=== PATIENT | male | born 1960 | race Caucasian/White ===

== ENCOUNTER → 2017-09-20 | Outpatient (CLI) | payer BC | LOC: M RAD 17:46 | DX: M25.571 Pain in right ankle and joints of right foot (principal) ==

== ENCOUNTER → 2018-01-12 | Outpatient (REF) | payer BC ==
[2018-01-12 18:19] LABS: BASO % 0.5 % (0.0-1.0); EOS # 0.3 10^3/uL (0.0-0.50); EOS % 3.4 % (0.0-3.0); HEMATOCRIT 40.6 % (42.0-52.0); HEMOGLOBIN 14.2 g/dl (13.5-17.5); IMMATURE GRANULOCYTE % 0.4 % (0-3.0); LYMPH # 2.1 10^3/uL (1.5-4.5); LYMPH % 24.8 % (24.0-44.0); MEAN CORPUSCULAR HEMOGLOBIN 35.1 pg (27.0-33.0); MEAN CORPUSCULAR VOLUME 100.5 fl (80.0-96.0); MONO # 0.7 10^3/uL (0.0-0.8); MONO % 8.5 % (0.0-5.0); NEUTROPHILS # 5.2 10^3/uL (1.8-7.7); NEUTROPHILS % 62.4 % (36.0-66.0); PLATELET COUNT, AUTOMATED 278 10^3/uL (150-450); RED BLOOD COUNT 4.04 10^6/uL (4.30-6.10); RED CELL DISTRIBUTION WIDTH 12.1 % (11.5-14.5); WHITE BLOOD COUNT 8.3 10^3/uL (4.0-10.0)
[2018-01-12 18:42] LABS: ALBUMIN 3.7 GM/DL (3.2-5.2); ALBUMIN/GLOBULIN RATIO 1.09 (1.00-1.93); ALKALINE PHOSPHATASE 130 U/L (45-117); ALT/SGPT 27 U/L (12-78); ANION GAP 10 MEQ/L (8-16); AST/SGOT 18 U/L (7-37); BILIRUBIN,TOTAL 0.8 MG/DL (0.2-1.0); BLOOD UREA NITROGEN 19 MG/DL (7-18); CALCIUM LEVEL 9.2 MG/DL (8.5-10.1); CARBON DIOXIDE LEVEL 23 MEQ/L (21-32); CHLORIDE LEVEL 109 MEQ/L (98-107); CREATININE FOR GFR 1.48 MG/DL (0.70-1.30); GLOMERULAR FILTRATION RATE 52.5 (>56); GLUCOSE, FASTING 92 MG/DL (70-100); POTASSIUM SERUM 4.2 MEQ/L (3.5-5.1); SODIUM LEVEL 142 MEQ/L (136-145); TOTAL PROTEIN 7.1 GM/DL (6.4-8.2)
== END ==
LOC: M LAB REF 18:13
DX: M79.673 Pain in unspecified foot (principal)

== ENCOUNTER → 2018-01-18 | Outpatient (REF) | payer BC ==
[2018-01-18 13:36] LABS: APPEARANCE, URINE CLEAR (CLEAR); BACTERIA, URINE AUTO NEGATIVE (NEGATIVE); BILIRUBIN, URINE AUTO NEGATIVE (NEGATIVE); BLOOD, URINE BLOOD NEGATIVE (NEGATIVE); COLOR, URINE YELLOW (YELLOW); GLUCOSE, URINE (UA) AUTO NEGATIVE (NEGATIVE); KETONE, URINE AUTO NEGATIVE (NEGATIVE); LEUKOCYTE ESTERASE, URINE AUTO NEGATIVE (NEGATIVE); MUCUS, URINE SMALL (NEGATIVE); NITRITE, URINE AUTO NEGATIVE (NEGATIVE); PROTEIN, URINE AUTO NEGATIVE (NEGATIVE); RBC, URINE AUTO 1 /HPF (0-3); SPECIFIC GRAVITY URINE AUTO 1.017 (1.002-1.035); SQUAMOUS EPITHELIAL CELL UR AU 0 /HPF (0-6); UROBILINOGEN, URINE AUTO 0.2 mg/dL (0.0-2.0); WBC, URINE AUTO 1 /HPF (0-3)
[2018-01-18 13:49] LABS: URIC ACID 7.3 MG/DL (3.5-7.2)
[2018-01-18 13:51] LABS: VITAMIN B12 LEVEL 403 PG/ML (247-911)
== END ==
LOC: M LAB REF 13:00
DX: N18.3 Chronic kidney disease, stage 3 (moderate) (principal); R73.09 Other abnormal glucose; R63.4 Abnormal weight loss; K21.9 Gastro-esophageal reflux disease without esophagitis
CPT/HCPCS: 84550

== ENCOUNTER → 2018-01-18 | Outpatient (REF) | payer BC ==
[2018-01-19 14:24] LABS: PHOSPHORUS LEVEL 3.1 MG/DL (2.5-4.9)
[2018-01-19 14:24] LABS: RHEUMATOID FACTOR QUANT < 10.0 IU/ML (<15.0)
[2018-01-20 16:20] LABS: ANTINUCLEAR ANTIBODIES DIRECT Negative (Negative)
== END ==
LOC: M LAB REF 13:28
DX: N18.3 Chronic kidney disease, stage 3 (moderate) (principal); M25.511 Pain in right shoulder; M79.671 Pain in right foot; R63.4 Abnormal weight loss

== ENCOUNTER → 2018-02-06 | Outpatient (REF) | payer BC ==
[2018-02-06 18:41] LABS: C REACTIVE PROTEIN QUANTITATIV 0.33 MG/DL (0.00-0.30)
[2018-02-06 18:41] LABS: URIC ACID 7.9 MG/DL (3.5-7.2)
== END ==
LOC: M LAB REF 17:22
DX: M79.671 Pain in right foot (principal); M25.511 Pain in right shoulder
CPT/HCPCS: 84550

== ENCOUNTER → 2018-03-15 | Outpatient (CLI) | payer BC | LOC: M RAD 12:16 | DX: I15.0 Renovascular hypertension (principal); N18.3 Chronic kidney disease, stage 3 (moderate) | CPT/HCPCS: 78707 ==

== ENCOUNTER → 2018-04-18 | Outpatient (REF) | payer BC ==
[2018-04-18 13:44] LABS: URIC ACID 8.8 MG/DL (3.5-7.2)
== END ==
LOC: M LAB REF 12:23
DX: M79.671 Pain in right foot (principal); M25.511 Pain in right shoulder
CPT/HCPCS: 84550

== ENCOUNTER → 2018-06-06 | Outpatient (REF) | payer BC ==
[2018-06-06 13:02] LABS: URIC ACID 8.2 MG/DL (3.5-7.2)
== END ==
LOC: M LAB REF 12:18
DX: M25.511 Pain in right shoulder (principal); M79.671 Pain in right foot
CPT/HCPCS: 84550

== ENCOUNTER → 2018-06-08 | Outpatient (CLI) | payer BC ==
[~2018-06-08] MED LIST: ISOVUE-370 76% 100ML VIAL (Q9967) As Ordered
== END ==
LOC: M RAD 16:44
DX: I70.1 Atherosclerosis of renal artery (principal)
CPT/HCPCS: Q9967

== ENCOUNTER → 2018-09-02 | Outpatient (CLI) | payer BC ==
--- NOTE | 2018-09-02 11:05 | REP ---
The lumbar spine five views: Comparison is 07/03/2016. There are pedicle screws and stabilization rods spanning the L4 - L5-S1 levels. This is unchanged. There is no spondylolisthesis. There is opacity within the L4-5 disc space, possibly an intervertebral disc spacer. There is disc space narrowing throughout the lumbar spine, most advanced at L4-5 and L5 S1 compatible with multilevel degenerative disc disease, not significantly changed. The sacroiliac articulations are unremarkable. Impression: Postsurgical changes as described. Degenerative disc disease as described. No significant interval change. Electronically Signed by Tyler Martinez MD 09/02/2018 10:56 A
== END ==
LOC: M RAD 10:15
PROVIDERS: ATTEND Internal Medicine
DX: M54.5 Low back pain (principal)

== ENCOUNTER → 2018-10-04 | Outpatient (REF) | payer BC | LOC: M LAB REF 12:08 | PROVIDERS: ATTEND Internal Medicine | DX: M79.671 Pain in right foot (principal); M25.511 Pain in right shoulder ==

== ENCOUNTER → 2018-11-07 | Outpatient (REF) ==
--- NOTE | 2018-11-08 01:30 | REP ---
Clinical: Pain and disability. Technique: AP, lateral, coned-down views of the lumbosacral spine. Comparison: 09/02/2018. Findings: The patient is again noted to be status post posterior fixation at L4-S1. Alignment is stable and relatively maintained. Multilevel degenerative changes include endplate sclerosis, osteophyte formation, hypertrophic facet changes are again noted and essentially stable. No acute fracture / compression injury or subluxation. Impression: Stable appearance to L4-S1 fixation. Multilevel degenerative changes again noted and relatively stable. Electronically Signed by Joe Gibson MD 11/08/2018 01:21 A
== END ==
LOC: M SMT 11:08
PROVIDERS: ATTEND Internal Medicine
DX: M51.9 Unspecified thoracic, thoracolumbar and lumbosacral intervertebral disc disorder (principal); Z98.1 Arthrodesis status

== ENCOUNTER → 2019-01-29 | Outpatient (REF) | payer BC | LOC: M LAB REF 12:40 | PROVIDERS: ATTEND Internal Medicine | DX: M79.671 Pain in right foot (principal) ==

== ENCOUNTER → 2019-05-21 | Outpatient (REF) | payer BC | LOC: M LAB REF 12:23 | PROVIDERS: ATTEND Internal Medicine | DX: M10.9 Gout, unspecified (principal) ==

== ENCOUNTER → 2019-09-11 | Outpatient (REF) | payer MEDICARE | LOC: M LAB REF 12:27 | PROVIDERS: ATTEND Internal Medicine | DX: M10.9 Gout, unspecified (principal); N18.3 Chronic kidney disease, stage 3 (moderate) ==

== ENCOUNTER → 2020-03-18 | Outpatient (REF) | payer MEDICARE | LOC: M LAB REF 19:37 | PROVIDERS: ATTEND Internal Medicine | DX: M10.9 Gout, unspecified (principal) ==

== ENCOUNTER → 2020-07-02 | Outpatient (CLI) | payer MEDICARE ==
--- NOTE | 2020-07-02 09:45 | REP ---
INDICATION: SPRAIN OF LEFT ANKLE AND FOOT COMPARISON: None. TECHNIQUE: AP, lateral, bilateral oblique views left foot. FINDINGS: Generalized age-related changes are appreciated. No obvious acute fracture or dislocation. No subcutaneous emphysema or foreign body. IMPRESSION: Generalized age-related changes. No acute fracture or dislocation. <Electronically signed by Joe Gibson > 07/02/20 0934
--- NOTE | 2020-07-02 09:46 | REP ---
INDICATION: SPRAIN OF LEFT ANKLE AND FOOT COMPARISON: None. TECHNIQUE: AP, lateral, bilateral oblique views. FINDINGS: Generalized age-related changes are appreciated as well as evidence for old healed fractures primarily involving the lateral malleolus. No obvious acute fracture or dislocation identified. Ankle mortise appears intact. IMPRESSION: Generalized age-related degenerative changes and posttraumatic changes related to old injury. No obvious acute fracture or dislocation. <Electronically signed by Joe Gibson > 07/02/20 0919
== END ==
LOC: M WUC 08:47
PROVIDERS: ATTEND Physician Assistant
DX: S93.402A Sprain of unspecified ligament of left ankle, initial encounter (principal); S93.602A Unspecified sprain of left foot, initial encounter; X58.XXXA Exposure to other specified factors, initial encounter; Y92.89 Other specified places as the place of occurrence of the external cause; Y93.89 Activity, other specified; Y99.8 Other external cause status; M19.072 Primary osteoarthritis, left ankle and foot

== ENCOUNTER → 2020-09-16 | Outpatient (REF) | payer MEDICARE | LOC: M LAB REF 12:19 | PROVIDERS: ATTEND Internal Medicine | DX: M10.9 Gout, unspecified (principal) ==

== ENCOUNTER → 2020-10-29 | Outpatient (REF) | payer MEDICARE | LOC: M LAB REF 16:25 | PROVIDERS: ATTEND Internal Medicine | DX: M10.9 Gout, unspecified (principal) ==

== ENCOUNTER 2021-01-10 19:52 | Emergency (ER) | payer MEDICARE ==
[~2021-01-10] VITALS: Ht 190.5 cm; Wt 113.6 kg
[2021-01-10] MEDS ORDERED: ALLO100T PO (20:07)
[2021-01-10] MEDS ORDERED: FAMO1TAB11 PO (20:07)
[2021-01-10] MEDS ORDERED: AMLO2.5T3 PO (20:07)
[2021-01-10] MEDS ORDERED: ROSU20TA5 PO (20:07)
[2021-01-10] MEDS ORDERED: ASPIRIN 81 MG CHEW TABLET PO ONE (20:25)
[2021-01-10 20:30] LABS: BASO # 0.1 10^3/uL (0.0-0.2); BASO % 0.6 % (0.0-1.0); EOS # 0.3 10^3/uL (0.0-0.5); HEMATOCRIT 46.2 % (42.0-52.0); HEMOGLOBIN 15.9 g/dl (13.5-17.5); LYMPH # 3.5 10^3/uL (1.5-5.0); LYMPH % 32.7 % (24.0-44.0); MEAN CORPUSCULAR HEMOGLOBIN 34.2 pg (27.0-33.0); MEAN CORPUSCULAR HGB CONC 34.4 g/dl (32.0-36.5); MEAN CORPUSCULAR VOLUME 99.4 fl (80.0-96.0); MONO # 0.9 10^3/uL (0.0-0.8); NEUTROPHILS % 55.3 % (36.0-66.0); PLATELET COUNT, AUTOMATED 285 10^3/uL (150-450); RED BLOOD COUNT 4.65 10^6/uL (4.30-6.10); WHITE BLOOD COUNT 10.8 10^3/uL (4.0-10.0)
--- NOTE | 2021-01-10 20:33 | REP ---
INDICATION: CHEST PAIN COMPARISON: None. TECHNIQUE: Portable AP view of the chest FINDINGS: The mediastinum and cardiac silhouette are within normal limits for portable technique. The lung lozano are clear without acute consolidation, effusion, or pneumothorax. Skeletal structures are intact. IMPRESSION: No acute cardiopulmonary process appreciated. <Electronically signed by Joe Gibson > 01/10/212028
[2021-01-10 20:37] VITALS: BP 152/81
[2021-01-10] MEDS: NITROGLYCERIN 0.4 MG SUBL TABLET SL PRN (20:37)
[2021-01-10 20:41] LABS: INR 0.97; PROTHROMBIN TIME 13.1 SECONDS (12.5-14.3)
[2021-01-10 20:42] LABS: PARTIAL THROMBOPLASTIN TIME 23.2 SECONDS (24.2-38.5)
[2021-01-10 21:23] LABS: ALT/SGPT 41 U/L (12-78); BILIRUBIN,DIRECT 0.2 MG/DL (0.0-0.2); BILIRUBIN,TOTAL 0.6 MG/DL (0.2-1.0); BLOOD UREA NITROGEN 19 MG/DL (7-18); CARBON DIOXIDE LEVEL 20 MEQ/L (21-32); CHLORIDE LEVEL 116 MEQ/L (98-107); CK-MB VALUE MASS 2.8 NG/ML (<3.6); CPK CREATINE PHOSPHOKINASE 210 U/L (39-308); CREATININE FOR GFR 1.33 MG/DL (0.70-1.30); FREE T4 0.85 NG/DL (0.76-1.46); GLOMERULAR FILTRATION RATE 58.8 (>56); GLUCOSE, FASTING 98 MG/DL (70-100); LIPASE 108 U/L (73-393); MB/CK RELATIVE INDEX 1.33 (< OR =4); NT-PRO BNP 11 PG/ML (<125); POTASSIUM SERUM 3.4 MEQ/L (3.5-5.1); SODIUM LEVEL 146 MEQ/L (136-145); TOTAL PROTEIN 5.6 GM/DL (6.4-8.2); TROPONIN I < 0.02 NG/ML (< 0.10)
[2021-01-10] MEDS ORDERED: POTASSIUM CHLORIDE 10 MEQ SR TABLET PO ONE (21:45)
[2021-01-10] MEDS ORDERED: NS 1,000 ML IV SCH (21:45)
[2021-01-10] MEDS ORDERED: ISOVUE-370 76% 100ML VIAL As Ordered ONE (21:45)
--- NOTE | 2021-01-10 22:06 | REPVR ---
PROCEDURE INFORMATION: Exam: CTA Chest With Contrast Exam date and time: 01/10/2021 9:49 PM Age: 60 years old Clinical indication: Pain; Shortness of breath; Chest pressure; Additional info: Chest pain SOB TECHNIQUE: Imaging protocol: Computed tomographic angiography of the chest with contrast. 3D rendering (Not supervised by radiologist): MIP and/or 3D reconstructed images were created by the technologist. Radiation optimization: All CT scans at this facility use at least one of these dose optimization techniques: automated exposure control; mA and/or kV adjustment per patient size (includes targeted exams where dose is matched to clinical indication); or iterative reconstruction. Contrast material: ISOVUE 370; Contrast volume: 100 ml; Contrast route: INTRAVENOUS (IV); COMPARISON: CR PORTABLE CHEST X-RAY 01/10/2021 8:08 PM FINDINGS: Pulmonary arteries: There are no pulmonary emboli. Aorta: There is mild atherosclerosis in the thoracic aorta. There is no aortic dissection or aneurysm. Lungs: Bilateral mild apical pleuroparenchymal scarring. Lungs otherwise clear. Pleural spaces: Unremarkable. No pneumothorax. No pleural effusion. Heart: Unremarkable. No cardiomegaly. No pericardial effusion. Lymph nodes: Unremarkable. No enlarged lymph nodes. Bones/joints: Status post right shoulder arthroplasty. The spine demonstrates mild degenerative changes. Soft tissues: Unremarkable. IMPRESSION: 1. There is no aortic dissection or aneurysm. 2. There are no pulmonary emboli. 3. No acute pulmonary parenchymal infiltrates. Electronically signed by: Oz Ureña On 01/10/2021 22:06:07 PM
[2021-01-11 02:59] LABS: CK-MB VALUE MASS 3.2 NG/ML (<3.6); CPK CREATINE PHOSPHOKINASE 202 U/L (39-308); MB/CK RELATIVE INDEX 1.58 (< OR =4); TROPONIN I < 0.02 NG/ML (< 0.10)
[2021-01-11 03:15] VITALS: BP 135/94
[2021-01-11] MEDS: NITROGLYCERIN 0.4 MG SUBL TABLET SL PRN (04:53)
--- NOTE | 2021-01-11 18:11 | ECGEPIP ---
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
--- NOTE | 2021-01-11 18:12 | ECGEPIP ---
[facility] - ED Test Date: 2021-01-11 Pat Name: ZENAIDA OZUNA Department: Room: - Gender: Male Bench Hand Machine: ED : 1960 Requested By: NEO Rhodes Order Number: [id number] Reading MD: Shelby Dutta Measurements Intervals [place] Rate: 64 P: -1 UT: 182 QRS: -7 QRSD: 84 T: 26 QT: 396 QTc: 408 Interpretive Statements Normal sinus rhythm Minimal voltage criteria for LVH, may be normal variant ( R in aVL ) leftward axis Nonspecific ST T wave changes cw 01/10/[address] T wave changes Electronically Signed on 01-11-2021 18:12:20 EDT by Shelby Dutta
== END 2021-01-11 05:59 | disposition home or self-care (01) ==
LOC: M ED 19:52
DX: R07.9 Chest pain, unspecified (principal); R06.02 Shortness of breath; I10 Essential (primary) hypertension; E78.5 Hyperlipidemia, unspecified; Z87.891 Personal history of nicotine dependence; Z79.899 Other long term (current) drug therapy
CPT/HCPCS: 71045; 71275; 80048; 80076; 82550; 82553; 83690; 83880; 84439; 84443; 84484; 85025; 85610; 85730; 93005; 93041; 94760; 96360; 96361; 99285; Q9967

== ENCOUNTER → 2021-03-24 | Outpatient (REF) | payer MEDICARE ==
[~2021-03-24] MED LIST changes: +ALLO100T PO; +AMLO2.5T3 PO; +FAMO1TAB11 PO; -ISOVUE-370 76% 100ML VIAL (Q9967) As Ordered; +ROSU20TA5 PO
== END ==
LOC: M LAB REF 11:03
PROVIDERS: ATTEND Internal Medicine
DX: M10.9 Gout, unspecified (principal)

== ENCOUNTER → 2022-04-20 | Outpatient (REF) | payer MEDICARE | LOC: M LAB REF 16:08 | PROVIDERS: ATTEND Physician Assistant Medical | DX: M54.50 Low back pain, unspecified (principal); R30.0 Dysuria ==

== ENCOUNTER → 2022-05-14 | Outpatient (CLI) | payer MEDICARE | LOC: M RAD 13:25 | PROVIDERS: ATTEND Physician Assistant Medical | DX: N50.819 Testicular pain, unspecified (principal) ==

== ENCOUNTER → 2022-05-25 | Outpatient (REF) | payer MEDICARE | LOC: M LAB REF 16:40 | PROVIDERS: ATTEND Internal Medicine | DX: R74.8 Abnormal levels of other serum enzymes (principal) ==

== ENCOUNTER → 2022-11-18 | Outpatient (REF) | payer MEDICARE | LOC: M LAB REF 12:19 | PROVIDERS: ATTEND Internal Medicine | DX: M10.9 Gout, unspecified (principal) ==

== ENCOUNTER 2023-03-02 18:21 | Emergency (ER) | payer MEDICARE ==
[~2023-03-02] VITALS: Ht 190.5 cm; Wt 116.3 kg
[~2023-03-02 18:21] MED LIST changes: -ROSU20TA5 PO; +ROSU20TA61 PO
[2023-03-02 19:14] LABS: BASO # 0.1 10^3/uL (0.0-0.2); BASO % 0.7 % (0.0-1.0); EOS # 0.3 10^3/uL (0.0-0.5); EOS % 2.7 % (0.0-3.0); HEMATOCRIT 45.4 % (42.0-52.0); HEMOGLOBIN 15.8 g/dl (13.5-17.5); LYMPH # 2.9 10^3/uL (1.5-5.0); LYMPH % 27.7 % (24.0-44.0); MEAN CORPUSCULAR HEMOGLOBIN 34.9 pg (27.0-33.0); MEAN CORPUSCULAR HGB CONC 34.8 g/dl (32.0-36.5); MEAN CORPUSCULAR VOLUME 100.2 fl (80.0-96.0); MONO # 0.9 10^3/uL (0.0-0.8); MONO % 8.3 % (2.0-8.0); NEUTROPHILS # 6.3 10^3/uL (1.5-8.5); NEUTROPHILS % 60.3 % (36.0-66.0); PLATELET COUNT, AUTOMATED 252 10^3/uL (150-450); RED BLOOD COUNT 4.53 10^6/uL (4.30-6.10); WHITE BLOOD COUNT 10.4 10^3/uL (4.0-10.0)
[2023-03-02 19:36] LABS: CALCIUM LEVEL 9.6 MG/DL (8.3-10.6); CK-MB VALUE MASS 1.6 NG/ML (<3.6); CREATININE FOR GFR 1.91 MG/DL (0.70-1.30); GLOMERULAR FILTRATION RATE 38.3 (>49); MB/CK RELATIVE INDEX 0.81 (< OR =4); POTASSIUM SERUM 4.6 MMOL/L (3.5-5.1)
[2023-03-02 22:05] LABS: CK-MB VALUE MASS 2.6 NG/ML (<3.6)
[2023-03-02 22:08] LABS: MB/CK RELATIVE INDEX 3.61 (< OR =4)
[2023-03-02 22:49] VITALS: TEMP 97.2
[2023-03-03] MEDS ORDERED: NS 1,000 ML IV ONE (02:00)
[2023-03-03] MEDS ORDERED: ACETAMINOPHEN *IV* 1,000 MG in IV 1 EA IV ONE (02:00)
[2023-03-03 02:15] VITALS: BP 148/98; O2SAT 96
[2023-03-03 02:31] LABS: ALBUMIN 3.9 G/DL (3.2-5.2); BILIRUBIN,DIRECT 0.4 MG/DL (<0.4); BILIRUBIN,TOTAL 1.4 MG/DL (0.3-1.2); CK-MB VALUE MASS 1.4 NG/ML (<3.6); MAGNESIUM LEVEL 1.8 MG/DL (1.8-2.4); TOTAL PROTEIN 6.9 G/DL (5.7-8.2)
[2023-03-03 02:34] LABS: MB/CK RELATIVE INDEX 0.76 (< OR =4)
== END 2023-03-03 03:12 | disposition home or self-care (01) ==
LOC: M ED 18:21
DX: R07.9 Chest pain, unspecified (principal); N18.9 Chronic kidney disease, unspecified; I10 Essential (primary) hypertension; E78.5 Hyperlipidemia, unspecified; Z87.891 Personal history of nicotine dependence; Z88.8 Allergy status to other drugs, medicaments and biological substances; Z79.899 Other long term (current) drug therapy
CPT/HCPCS: 36415; 71046; 80048; 80076; 82550; 82553; 83690; 83735; 84484; 85025; 87486; 87581; 87633; 87798; 93005; 93041; 93971; 94760; 99284; J0131

== ENCOUNTER → 2023-07-27 | Outpatient (CLI) | payer MEDICARE | LOC: M RAD 10:26 | PROVIDERS: ATTEND Physician Assistant Medical | DX: N50.819 Testicular pain, unspecified (principal) ==

== ENCOUNTER → 2023-11-21 | Outpatient (REF) | payer MEDICARE | LOC: M LAB REF 11:48 | PROVIDERS: ATTEND Internal Medicine | DX: M10.9 Gout, unspecified (principal) ==